=== PATIENT | female | born 1965 | race Caucasian/White ===

== ENCOUNTER 2018-10-03 13:23 | Emergency (ER) | payer MEDICAID ==
[~2018-10-03] VITALS: Ht 170.2 cm; Wt 103.0 kg
[2018-10-03 13:30] VITALS: BP 136/94
[2018-10-03] MEDS ORDERED: ONDANSETRON 4 MG/2 ML VIAL IVP ONE (13:50)
[2018-10-03] MEDS ORDERED: MORPHINE SULFATE 4 MG/ML SYR IVP ONE (13:50)
[2018-10-03] MEDS ORDERED: NACL 0.9% 1,000 ML IV ONE (13:50)
[2018-10-03 14:24] LABS: BASOPHILS % (AUTO) 0.4 % (0.0-2.0); EOSINOPHILS # (AUTO) 0.1 K/uL (0-0.4); EOSINOPHILS % (AUTO) 1.3 % (0.0-4.0); HEMATOCRIT 41.6 % (36-48); HEMOGLOBIN 13.8 g/dL (12.0-16.0); LYMPHOCYTES # (AUTO) 2.9 K/uL (2.5-16.5); LYMPHOCYTES % (AUTO) 31.7 % (20.5-51.1); MEAN CORPUSCULAR HEMOGLOBIN 30 pg (27-31); MEAN CORPUSCULAR HGB CONC 33 g/dL (33-37); MEAN CORPUSCULAR VOLUME 89.7 fL (80-94); MONOCYTES # (AUTO) 0.5 K/uL (0.8-1.0); MONOCYTES % (AUTO) 5.8 % (1.7-9.3); NEUTROPHILS # (AUTO) 5.6 K/uL (1.8-7.7); NEUTROPHILS % (AUTO) 60.8 % (42.2-75.2); PLATELET COUNT (AUTO) 222 K/uL (140-450); RED BLOOD CELL COUNT(AUTO) 4.64 MIL/uL (4.20-5.40); RED CELL DISTRIBUTION WIDTH 13.4 % (11.6-13.7); WHITE BLOOD COUNT (AUTO) 9.2 K/uL (4.8-10.8)
[2018-10-03 14:56] LABS: ALBUMIN 3.9 g/dL (3.4-5.0); ANION GAP 11.9 (8-16); CARBON DIOXIDE 29.1 mmol/L (21-32); CREATININE 0.9 mg/dL (0.6-1.3); TOTAL BILIRUBIN 0.3 mg/dL (0.0-1.0)
[2018-10-03 15:01] LABS: APPEARANCE,URINE HAZY (CLEAR); BILIRUBIN,URINE NEGATIVE (NEGATIVE); BLOOD, URINE 1+ (NEGATIVE); COLOR,URINE YELLOW (YELLOW); LEUKOCYTE ESTERASE ,URINE 2+ (NEGATIVE); NITRITE, URINE NEGATIVE (NEGATIVE); PH,URINE 6.5 (5.0-9.0); UGLUCOSE NEGATIVE (NEGATIVE)
[2018-10-03 15:30] LABS: RBC,URINE 0-5 (RARE) /HPF (0-5)
[2018-10-03 15:43] LABS: PROTHROMBIN TIME 9.2 secs (10.8-13.4)
[2018-10-03] MEDS ORDERED: cefTRIAXone 1,000 MG VIAL ONE (16:45)
[2018-10-03 17:12] VITALS: BP 130/65
== END 2018-10-03 17:13 | disposition home or self-care (01) ==
LOC: MED 13:23
DX: N39.0 Urinary tract infection, site not specified (principal); R11.0 Nausea
CPT/HCPCS: 36415; 76705; 80053; 81001; 81025; 82150; 83690; 85025; 85610; 85730; 87086; 96365; 96375; 99284; J0696; J2270; J2405; J7030; J7060; Q0092

== ENCOUNTER 2020-08-22 11:32 | Emergency (ER) | payer MEDICAID, OTHER ==
[~2020-08-22] VITALS: Ht 157.5 cm; Wt 106.1 kg
[2020-08-22 11:42] VITALS: BP 158/79
--- NOTE | 2020-08-22 13:38 | NUR ---
PATIENT AMBULATED TO ER BED 12
--- NOTE | 2020-08-22 13:39 | NUR ---
PATIENT PRESENTS TO ED WITH C/O RIGHT BREAST PAIN . PT STATES PAIN X 4 DAYS. DISCHARGE WAS PRESENT YESTERDAY AFTER SQUEEZING BREAST. DENIES N/V/D; SKIN IS PINK/WARM/DRY; AAOX4 WITH EVEN AND STEADY GAIT; LUNGS CLEAR BL; HR EVEN AND REGULAR; PT DENIES ANY FEVER, CP, SOB, OR COUGH AT THIS TIME; PATIENT STATES PAIN OF 7/10 AT THIS TIME; VSS; PATIENT POSITIONED FOR COMFORT; HOB ELEVATED; BEDRAILS UP X2; BED DOWN. ER MD MADE AWARE OF PT STATUS.
--- NOTE | 2020-08-22 14:11 | NUR ---
DR. MAO AT BEDSIDE FOR EXAM
[2020-08-22 14:50] VITALS: BP 158/79
--- NOTE | 2020-08-22 14:51 | NUR ---
Patient discharged with v/s stable. Written and verbal after care instructions given and explained. Patient alert, oriented and verbalized understanding of instructions. Ambulatory with steady gait. All questions addressed prior to discharge. ID band removed. Patient advised to follow up with PMD. Rx of MOTRIN AND NORCO given. Patient educated on indication of medication including possible reaction and side effects. Opportunity to ask questions provided and answered.
== END 2020-08-22 14:51 | disposition home or self-care (01) ==
LOC: MED 11:32
DX: N63.0 Unspecified lump in unspecified breast (principal)
CPT/HCPCS: 99283

== ENCOUNTER 2021-07-09 09:27 | Emergency (ER) | payer OTHER ==
[~2021-07-09] VITALS: Ht 154.9 cm; Wt 110.2 kg
[2021-07-09 09:37] VITALS: BP 150/79
--- NOTE | 2021-07-09 09:40 | NUR ---
Pt ambulated to bed 06.
--- NOTE | 2021-07-09 09:56 | NUR ---
ERMD at bedside.
--- NOTE | 2021-07-09 09:57 | NUR ---
55 Y FEMALE WITH C/O R BREAST PAIN. PT STATED SHE NOTICED A BUMP ON RT BREAST 6 MONTHS AGO AND WENT TO GET A MAMMOGRAM WHICH HELP RELIEVE THE PAIN AND WAS TOLD SHE HAD A CYST. PT STATED THE PAIN STARTED AGAIN X3 DAYS AGO AND IS NOW HAVING BLOODLY DISCHARGE FROM HER NIPPLE WHEN SQUEEZING HER BREAST. WARM TO TOUCH. DENIES ANY RECENT FEVER. PT STATES INTERMITTENT 10/10 PAIN. PMH: DENIES NKA
--- NOTE | 2021-07-09 10:00 | NUR ---
Cedric HERNANDEZ Female Safety Pin Assembling Machine Operator accompanied female patient for Breast Exam performed by Dr Love.
[2021-07-09] MEDS ORDERED: HYDROcodone/APAP 5/325 MG 1 TAB TAB PO ONE (10:05)
--- NOTE | 2021-07-09 10:27 | NUR ---
Ultrasound at bedside.
--- NOTE | 2021-07-09 14:25 | NUR ---
Cedric HERNANDEZ Female Personal Lines Account Executive accompanied female patient for Breast Exam performed by Dr Hernandez
[2021-07-09] MEDS ORDERED: SULF-59 PO (14:55)
[2021-07-09] MEDS ORDERED: ACET-10509 PO (14:55)
[2021-07-09 15:01] VITALS: BP 141/70
--- NOTE | 2021-07-09 15:02 | NUR ---
Patient discharged with v/s stable. Written and verbal after care instructions given and explained. Patient alert, oriented and verbalized understanding of instructions. Ambulatory with steady gait. All questions addressed prior to discharge. ID band removed. Patient advised to follow up with PMD. Rx of TYNENOL given. Patient educated on indication of medication including possible reaction and side effects. Opportunity to ask questions provided and answered.
== END 2021-07-09 15:01 | disposition home or self-care (01) ==
LOC: MED 09:27
DX: N64.4 Mastodynia (principal)
CPT/HCPCS: 76641; 99284; Q0092

== ENCOUNTER 2022-05-26 16:49 | Emergency (ER) | payer OTHER ==
[~2022-05-26] VITALS: Ht 154.9 cm; Wt 108.0 kg
[~2022-05-26 16:49] MED LIST: ACET-10509 PO; SULF-59 PO
[2022-05-26 16:54] VITALS: BP 146/76
[2022-05-26 17:31] LABS: BASOPHILS % (AUTO) 0.4 % (0.0-2.0); EOSINOPHILS # (AUTO) 0.2 K/uL (0-0.4); EOSINOPHILS % (AUTO) 3.2 % (0.0-4.0); HEMATOCRIT 39.4 % (36-48); HEMOGLOBIN 13.3 g/dL (12.0-16.0); LYMPHOCYTES # (AUTO) 2.2 K/uL (2.5-16.5); LYMPHOCYTES % (AUTO) 29.1 % (20.5-51.1); MEAN CORPUSCULAR HEMOGLOBIN 30 pg (27-31); MEAN CORPUSCULAR HGB CONC 34 g/dL (33-37); MEAN CORPUSCULAR VOLUME 88.2 fL (80-94); MONOCYTES # (AUTO) 0.5 K/uL (0.8-1.0); MONOCYTES % (AUTO) 6.2 % (1.7-9.3); NEUTROPHILS # (AUTO) 4.6 K/uL (1.8-7.7); NEUTROPHILS % (AUTO) 61.1 % (42.2-75.2); PLATELET COUNT (AUTO) 193 K/uL (140-450); RED BLOOD CELL COUNT(AUTO) 4.47 MIL/uL (4.20-5.40); RED CELL DISTRIBUTION WIDTH 13.7 % (11.6-13.7); WHITE BLOOD COUNT (AUTO) 7.4 K/uL (4.8-10.8)
[2022-05-26 17:49] LABS: ALBUMIN 3.8 g/dL (3.4-5.0); ANION GAP 12.4 (8-16); CARBON DIOXIDE 26.1 mmol/L (21-32); CREATININE 0.6 mg/dL (0.6-1.3); POTASSIUM 3.5 mmol/L (3.5-5.1); TOTAL BILIRUBIN 0.4 mg/dL (0.0-1.0)
[2022-05-26 20:06] LABS: BILIRUBIN,URINE NEGATIVE (NEGATIVE); BLOOD, URINE TRACE-L (NEGATIVE); COLOR,URINE YELLOW (YELLOW); LEUKOCYTE ESTERASE ,URINE TRACE (NEGATIVE); NITRITE, URINE POSITIVE (NEGATIVE); UGLUCOSE NEGATIVE (NEGATIVE)
[2022-05-26] MEDS ORDERED: MORPHINE SULFATE 4 MG/ML SYR IVP ONE (20:15)
[2022-05-26] MEDS ORDERED: ONDANSETRON 4 MG/2 ML VIAL IVP ONE (20:15)
[2022-05-26] MEDS ORDERED: NACL 0.9% 1,000 ML IV ONE (20:15)
[2022-05-26 20:20] LABS: APPEARANCE,URINE HAZY (CLEAR)
[2022-05-26] MEDS ORDERED: cefTRIAXone 1,000 MG VIAL ONE (20:26)
[2022-05-26 20:32] LABS: RBC,URINE 0-5 /HPF (0-5)
[2022-05-26 20:33] LABS: WBC,URINE 0-5 /HPF (0-5)
[2022-05-26] MEDS ORDERED: CIPR500T4 PO (23:38)
[2022-05-26] MEDS ORDERED: NAPR-54 PO (23:38)
[2022-05-26 23:45] VITALS: BP 145/72
== END 2022-05-26 23:45 | disposition home or self-care (01) ==
LOC: MED 16:49
DX: N12 Tubulo-interstitial nephritis, not specified as acute or chronic (principal)
CPT/HCPCS: 36415; 80053; 81001; 81025; 83605; 84702; 85025; 87040; 96365; 96366; 96375; 99285; J0696; J2270; J2405

== ENCOUNTER 2022-10-23 00:39 | Inpatient (IN) | payer OTHER ==
[~2022-10-23] VITALS: Ht 152.4 cm; Wt 108.9 kg
[~2022-10-23 00:39] MED LIST changes: +CIPR500T4 PO; +NAPR-54 PO
[2022-10-23 00:49] VITALS: BP 138/71
--- NOTE | 2022-10-23 00:52 | NUR ---
PT TO LOBBY.
[2022-10-23] MEDS ORDERED: NACL 0.9% 1,000 ML IV ONE ×3 (01:10→05:00)
[2022-10-23] MEDS ORDERED: KETOROLAC 30 MG/ML VIAL IVP ONE (01:10)
--- NOTE | 2022-10-23 01:27 | NUR ---
PT TAKEN TO CT
--- NOTE | 2022-10-23 01:52 | NUR ---
PT RETURN FROM CT Addendum: 10/23/22 at 0152 by MARIA TERESA RETURN TO ER BED 11
[2022-10-23 02:20] LABS: BASOPHILS # (AUTO) 0.1 K/uL (0.00-0.22); BASOPHILS % (AUTO) 0.8 % (0.0-2.0); EOSINOPHILS # (AUTO) 0.3 K/uL (0-0.4); EOSINOPHILS % (AUTO) 2.4 % (0.0-4.0); HEMATOCRIT 37.8 % (36-48); HEMOGLOBIN 12.9 g/dL (12.0-16.0); LYMPHOCYTES # (AUTO) 3.5 K/uL (2.5-16.5); LYMPHOCYTES % (AUTO) 33.1 % (20.5-51.1); MEAN CORPUSCULAR HEMOGLOBIN 30 pg (27-31); MEAN CORPUSCULAR HGB CONC 34 g/dL (33-37); MEAN CORPUSCULAR VOLUME 86.4 fL (80-94); MONOCYTES # (AUTO) 0.5 K/uL (0.8-1.0); MONOCYTES % (AUTO) 5.2 % (1.7-9.3); NEUTROPHILS # (AUTO) 6.1 K/uL (1.8-7.7); NEUTROPHILS % (AUTO) 58.5 % (42.2-75.2); PLATELET COUNT (AUTO) 187 K/uL (140-450); RED BLOOD CELL COUNT(AUTO) 4.38 MIL/uL (4.20-5.40); RED CELL DISTRIBUTION WIDTH 13.5 % (11.6-13.7); WHITE BLOOD COUNT (AUTO) 10.5 K/uL (4.8-10.8)
[2022-10-23 03:02] LABS: ALBUMIN 4.1 g/dL (3.4-5.0); ANION GAP 13.8 (8-16); CREATININE 0.8 mg/dL (0.6-1.3); POTASSIUM 3.8 mmol/L (3.5-5.1); TOTAL BILIRUBIN 0.3 mg/dL (0.0-1.0)
--- NOTE | 2022-10-23 03:50 | NUR ---
PT UP AND AMBULATES TO RESTROOM WITH A STEADY GAIT.
--- NOTE | 2022-10-23 04:00 | NUR ---
SWAB COLLECTED AND SENT TO LAB
--- NOTE | 2022-10-23 04:01 | NUR ---
Dr. Casper examining patient.
[2022-10-23] MEDS ORDERED: [UNRECOGNIZED DRUG - CODE] PO (04:55)
[2022-10-23] MEDS ORDERED: HIGH BLOOD PRESSURE (04:55)
[2022-10-23] MEDS ORDERED: MORPHINE SULFATE 2 MG/ML SYR IVP PRN (05:45)
--- NOTE | 2022-10-23 05:59 | NUR ---
PULLED MORPHINE OUT ON DIFFERENT PT. MEANT FOR THIS PT. NOT IN OMNICELL. WITNESSED BY JAC HERNANDEZ CHARGE.
--- NOTE | 2022-10-23 07:18 | NUR ---
REPORT TO MARCELINO HERNANDEZ
[2022-10-23 08:00] VITALS: BP 131/74
--- NOTE | 2022-10-23 09:27 | NUR ---
ADMISSION OF A 56 YEAR OLD FEMALE UNDER THE CARE OF DOCTOR OSWALD FOR A PULMONARY NODULE.
[2022-10-23] MEDS ORDERED: levoFLOXacin 500 MG TAB PO SCH (10:00)
[2022-10-23 12:00] VITALS: BP 133/76
--- NOTE | 2022-10-23 15:34 | NUR ---
PATIENT HAS BEEN SCREENED AND CATEGORIZED MODERATE NUTRITION RISK. PATIENT WILL BE SEEN WITHIN 3-5 DAYS OF ADMISSION. / REVIEWED BY EDIL STEINER RD
[2022-10-23 16:00] VITALS: BP 108/61
[2022-10-23] MEDS ORDERED: LEVO-481 PO (19:01)
--- NOTE | 2022-10-23 19:10 | NUR ---
DISCHARGE OF PATIENT WITH ALL BELONGINGS AND A COPY OF DISCHARGE INSTRUCTION. PATIENT VERBALIZES UNDERSTANDING OF TEACHING AND FOLLOW UP. INTACT 20 GAUGE IV CATHETER TIP REMOVAL FROM LEFT FOREARM. ID WRIST BAND REMOVAL.
[2022-10-24] MEDS ORDERED: SERTRALINE 50 MG TAB PO SCH (09:00)
== END 2022-10-23 19:30 | disposition home or self-care (01) | DRG 347 ==
LOC: MED 00:39 → MTU 04:57 → MED 04:57 → MTU 06:03
PROVIDERS: ADMIT Family Medicine; ATTEND Family Medicine
DX: M54.50 Low back pain, unspecified (principal); J18.8 Other pneumonia, unspecified organism; F32.9 Major depressive disorder, single episode, unspecified; I10 Essential (primary) hypertension; R91.8 Other nonspecific abnormal finding of lung field; Z20.822 Contact with and (suspected) exposure to COVID-19; Z79.1 Long term (current) use of non-steroidal anti-inflammatories (NSAID); Z79.899 Other long term (current) drug therapy; N60.11 Diffuse cystic mastopathy of right breast
CPT/HCPCS: 36415; 71250; 72128; 80053; 83036; 85025; 87040; 87081; 96361; 96374; 96375; 99285; J1885; J2270; J7030

== ENCOUNTER 2023-04-27 21:12 | Emergency (ER) | payer OTHER ==
[~2023-04-27] VITALS: Ht 154.9 cm; Wt 117.9 kg
[~2023-04-27 21:12] MED LIST changes: -ACET-10509 PO; -CIPR500T4 PO; +HIGH BLOOD PRESSURE; +LEVO-481 PO; -NAPR-54 PO; -SULF-59 PO; +[UNRECOGNIZED DRUG - CODE] PO
[2023-04-27 21:20] VITALS: BP 133/70; PULSE 84; RESP 16; TEMP 98.1; O2SAT 97
--- NOTE | 2023-04-27 21:20 | NUR ---
TO BED AMBULATORY
--- NOTE | 2023-04-27 21:29 | NUR ---
Patient being evaluated by physician at bedside.
[2023-04-27] MEDS ORDERED: NACL 0.9% 1,000 ML IV ONE (21:35)
[2023-04-27] MEDS ORDERED: ONDANSETRON 4 MG/2 ML VIAL IVP ONE (21:35)
[2023-04-27] MEDS ORDERED: MORPHINE SULFATE 4 MG/ML SYR IVP ONE (21:35)
[2023-04-27 21:59] LABS: BASOPHILS % (AUTO) 0.4 % (0.0-2.0); EOSINOPHILS # (AUTO) 0.1 K/uL (0-0.4); EOSINOPHILS % (AUTO) 1.2 % (0.0-4.0); HEMATOCRIT 37.8 % (36-48); HEMOGLOBIN 12.9 g/dL (12.0-16.0); LYMPHOCYTES # (AUTO) 2.2 K/uL (2.5-16.5); LYMPHOCYTES % (AUTO) 18.9 % (20.5-51.1); MEAN CORPUSCULAR HEMOGLOBIN 30 pg (27-31); MEAN CORPUSCULAR HGB CONC 34 g/dL (33-37); MEAN CORPUSCULAR VOLUME 87.4 fL (80-94); MONOCYTES # (AUTO) 0.7 K/uL (0.8-1.0); NEUTROPHILS # (AUTO) 8.5 K/uL (1.8-7.7); NEUTROPHILS % (AUTO) 73.5 % (42.2-75.2); PLATELET COUNT (AUTO) 232 K/uL (140-450); RED BLOOD CELL COUNT(AUTO) 4.33 MIL/uL (4.20-5.40); WHITE BLOOD COUNT (AUTO) 11.5 K/uL (4.8-10.8)
[2023-04-27 22:16] LABS: ALBUMIN 3.9 g/dL (3.4-5.0); ANION GAP 16.2 (8-16); CREATININE 0.7 mg/dL (0.6-1.3); POTASSIUM 3.2 mmol/L (3.5-5.1); TOTAL BILIRUBIN 0.6 mg/dL (0.0-1.0)
[2023-04-27] MEDS ORDERED: FAMOTIDINE 20 MG TAB PO ONE (22:40)
[2023-04-27] MEDS ORDERED: ALUMINUM HYD/MAG/SIMETHICONE 30 ML UDC PO ONE (22:40)
--- NOTE | 2023-04-27 22:43 | NUR ---
PT ENCOURAGED TO PROVIDE URINE SAMPLE. UP TO RESTROOM AMBULATING WITHOUT ASSISTANCE. STEADY GAIT.
--- NOTE | 2023-04-27 22:58 | NUR ---
Per [facility] ED DAVID Paz, NaCl 0.9 1L bolus started at 2158 and stopped at 2258. ED director aware.
[2023-04-28] MEDS ORDERED: MAG355OR2 PO (00:37)
[2023-04-28] MEDS ORDERED: OMEP20EC11 PO (00:37)
[2023-04-28] MEDS ORDERED: ONDA-188 PO (00:37)
[2023-04-28 00:58] VITALS: BP 124/78; PULSE 82; RESP 16; TEMP 98.4; O2SAT 97
--- NOTE | 2023-04-28 01:01 | NUR ---
Patient discharged with v/s stable. Written and verbal after care instructions given and explained. Patient verbalized understanding. Ambulatory with steady gait. All questions addressed prior to discharge. Advised to follow up with PMD.
== END 2023-04-28 01:01 | disposition home or self-care (01) ==
LOC: MED 21:12
DX: K29.70 Gastritis, unspecified, without bleeding (principal); R11.0 Nausea; I10 Essential (primary) hypertension; Z79.899 Other long term (current) drug therapy
CPT/HCPCS: 36415; 76705; 80053; 81002; 83690; 85025; 96361; 96374; 96375; 99285; J2270; J2405; J7030; Q0092; 99284